=== PATIENT | female | born 1935 | race Caucasian/White ===

== ENCOUNTER 2017-12-08 15:44 | Inpatient (IN) | payer OTHER ==
[~2017-12-08] VITALS: Ht 165.1 cm; Wt 69.4 kg
[~2017-12-08 15:44] MED LIST: CIPRO500 MG PO; LEVSIN/SL0.125 MG PO; MEMANTINE HCL5 MG; PANTOPRAZOLE SO40 MG; PROTONIX40 MG PO; TOVIAZ4 MG; ZYRTEC10 MG
[2017-12-09] MEDS ORDERED: METOPROLOL SUC100 MG PO (10:23)
[2017-12-09] MEDS ORDERED: PEPCID40 MG PO (10:25)
[2017-12-09] MEDS ORDERED: DICY20TA PO (10:25)
[2017-12-11] MEDS ORDERED: PROTONIX40 MG PO (13:42)
[2017-12-11] MEDS ORDERED: ZANTAC150 MG PO (13:42)
[2017-12-11] MEDS ORDERED: INTESTINEX PO (13:44)
== END 2017-12-11 14:58 | disposition home or self-care (01) | DRG 392 ==
LOC: ER 15:44 → SEC-K 21:50 → MEDJ 12-09 21:27
PROC: B246ZZZ Ultrasonography of Right and Left Heart (ICD-10-PCS; principal; 2017-12-08)
PROC: BW21YZZ Computerized Tomography (CT Scan) of Abdomen and Pelvis using Other Contrast (ICD-10-PCS; 2017-12-10)
DX: K57.20 Diverticulitis of large intestine with perforation and abscess without bleeding (principal); I10 Essential (primary) hypertension; G30.8 Other Alzheimer's disease; F02.80 Dementia in other diseases classified elsewhere, unspecified severity, without behavioral disturbance, psychotic disturbance, mood disturbance, and anxiety; K29.00 Acute gastritis without bleeding; E78.00 Pure hypercholesterolemia, unspecified; I45.81 Long QT syndrome